=== PATIENT | female | born 1950 | race Two or more races ===

== ENCOUNTER → 2018-05-09 | Outpatient (CLI) | payer OTHER ==
[2017-03-27 11:05] VITALS: BP 114/67
[~2018-05-09] MED LIST: ATOR20TA58 PO; ESOM20CA PO; FLUO20CA16 PO; LEVO25TA4 PO; LOSA25TA54 PO; TOPI50TA38 PO
--- NOTE | 2018-05-09 11:56 | KCIC ---
Right breast ultrasound: Reason for examination: Follow-up nodule. Comparison is made to previous study dated 01/08/2018. Ultrasound examination of the right breast was performed with attention to the area of previous concern and the right axilla. There continues to be nodule at the 7:00 position 6 cm from the nipple which has shown increase in size now measuring 8.2 mm in greatest dimension. This likely represents a fibroadenoma however with the increase in size, further evaluation with ultrasound biopsy is recommended to verify benign pathology. No abnormal appearing lymph nodes are seen in the axilla. IMPRESSION: Enlarging nodule at the 7:00 position 6 cm from the nipple now measuring 8.2 mm in size. Further evaluation with ultrasound-guided biopsy is recommended. BI-RADS Category 4: Suspicious. These findings have been discussed with the patient and the patient's physician office was notified about these findings with message left on the answering machine and instructions on reaching us for additional information given at 11:50 AM on 05/09/2018. "Our facility is accredited by the [employer] Mammography Program." Electronically signed by: Shae Saab MD (05/09/2018 11:52 AM) [id number]
== END | disposition home or self-care (01) ==
LOC: KCIC US 11:06
PROVIDERS: ATTEND Internal Medicine
DX: N63.13 Unspecified lump in the right breast, lower outer quadrant (principal)
CPT/HCPCS: 76641

== ENCOUNTER → 2018-06-05 | Outpatient (CLI) | payer MEDICARE, OTHER ==
[2017-03-27 11:05] VITALS: BP 114/67
--- NOTE | 2018-06-06 15:09 | PATHOLOGY ---
[facility] Accession Number: [id number] . 01 Material submitted: . RIGHT BREAST MASS BIOPSY . 01 Clinical history: . Right breast mass 8 mm . 02 Diagnosis: Breast tissue, right breast mass needle biopsy: - Fibroadenoma, with focal sclerosing adenosis. (JPM:tamiko; 06/06/2018) QMS/06/06/2018 . 02 Comment: There is no evidence of malignancy. . 02 Electronically signed: . David Barakat MD, Pathologist NPI- [id number] . 01 Gross description: . Received in formalin labeled "[place], Marizol, right breast," are multiple needle cores of yellow-casanova fibrofatty tissue measuring 2.4 x 1.8 x 0.4 cm in aggregate dimensions. The tissue is submitted in its entirety in cassette A1 through A3. The cold ischemic time is 5 minutes. The total formalin fixation time is 12 hours and 10 minutes. (TSD; 06/05/2018) TOB/TOB . 02 Microscopic: . Y . 02 Pathologist provided ICD-10: D24.1, N60.21 . 02 CPT . 888106 Specimen Comment: A courtesy copy of this report has been sent to Specimen Comment: [phone], . Specimen Comment: Report sent to DR GUZMÁN / DR SANTANA Specimen Comment: A duplicate report has been generated due to demographic updates. Performed at: 01 [facility] [address], [place] [id number] MD Jackson Hines MD Phone: [phone] Performed at: 02 [facility] [address] [place], [place] [id number] MD David Barakat MD Phone: [phone]
--- NOTE | 2018-06-10 08:54 | RAD ---
Ultrasound-guided right breast biopsy, 06/05/2018: History: Suspicious breast nodule Previous studies demonstrated a suspicious nodule at the 7:00 location in the right breast. Under local anesthesia, aseptic conditions and sonographic guidance the [employer] biopsy instrument was passed into the margin of this nodule via a lateral approach. Multiple 12-gauge vacuum-assisted core samples were obtained and sent to pathology for evaluation. A biopsy marker was then deposited at the biopsy site. The biopsy instrument was removed and hemostasis obtained. Two-view postprocedural digital mammograms were then obtained to document position of the biopsy marker. The patient tolerated the procedure well and left the department in good condition. The subsequent pathology report indicated the presence of a fibroadenoma. This is considered to be a concordant finding.
== END | disposition home or self-care (01) ==
LOC: US 08:03
PROVIDERS: ATTEND Internal Medicine
DX: D24.1 Benign neoplasm of right breast (principal); Z88.5 Allergy status to narcotic agent
CPT/HCPCS: 19083; 77065; 88305; C1713; 19081; 76942